=== PATIENT | female | born 1955 | race Asian ===

== ENCOUNTER 2016-11-07 05:40 | Inpatient (IN) | payer OTHER ==
[2016-10-31 15:07] LABS: BASOPHILS % (AUTO) 0.5 % (0.0-2.0); EOSINOPHILS % (AUTO) 11.8 % (1.0-6.0); HEMATOCRIT 44.4 % (36-46); LYMPHOCYTES # (AUTO) 2.6 K/uL (1.0-4.8); LYMPHOCYTES % (AUTO) 28.1 % (22.0-44.0); MEAN CORPUSCULAR HEMOGLOBIN 29.3 pg (26.0-34.0); MEAN CORPUSCULAR HGB CONC 31.6 G/dL (31.0-37.0); MEAN CORPUSCULAR VOLUME 93 fL (80-100); MONOCYTES # (AUTO) 0.5 K/uL (0.1-1.0); MONOCYTES % (AUTO) 5.7 % (2.0-9.0); NEUTROPHILS % (AUTO) 53.9 % (40.0-70.0); PLATELET COUNT (AUTO) 249 K/uL (150-450); RED BLOOD CELL COUNT(AUTO) 4.79 MIL/uL (4.00-5.20); WHITE BLOOD COUNT (AUTO) 9.3 K/uL (4.5-11.0)
[2016-10-31 15:19] LABS: CALCIUM, TOTAL 9.5 mg/dL (8.8-10.5); CREATININE 0.95 mg/dL (0.60-1.30); POTASSIUM 4.4 mmol/L (3.5-5.1); PROTHROMBIN TIME 10.4 SEC (9.4-11.6)
[2016-10-31 15:33] LABS: BILIRUBIN,TOTAL 0.3 mg/dL (0.1-1.0); TOTAL PROTEIN, SERUM 8.3 g/dL (6.4-8.2)
[~2016-11-07] VITALS: Ht 162.6 cm; Wt 79.5 kg
[~2016-11-07 05:40] MED LIST: AMLO-512 PO; ASPI81 PO; ATEN100T PO; GLIP5 PO; LORA10TA7 PO; LOSA50TA37 PO; LOVA20 PO; METF500T4 PO; OMEP20 PO
[2016-11-07] MEDS ORDERED: RINGERS SOLUTION,LACTATED 1,000 ML IV ONE ×3 (05:44→06:40)
[2016-11-07] MEDS ORDERED: SODIUM CHLORIDE 0.9% 10 ML ONE (06:39)
[2016-11-07] MEDS ORDERED: BUPIVACAINE HCL/PF 0.5% 30 ML VIAL ONE (06:39)
[2016-11-07] MEDS ORDERED: BACITRACIN 50,000 UNITS/VIAL ONE (06:40)
[2016-11-07] MEDS ORDERED: SODIUM CL IRRIG SOLN BAG 3,000 ML IRRIG ONE (06:40)
[2016-11-07] MEDS ORDERED: CELECOXIB 200 MG CAPSULE PO ONE (06:45)
[2016-11-07] MEDS ORDERED: FentaNYL CITRATE-PF 100 MCG/2 ML VIAL IVP PRN (06:45)
[2016-11-07] MEDS ORDERED: HYDROmorphone 2 MG/ML SYRINGE IVP PRN ×2 (06:45)
[2016-11-07] MEDS ORDERED: ZOLPIDEM TARTRATE 5 MG TABLET PO PRN (06:45)
[2016-11-07] MEDS ORDERED: MEPERIDINE-PF 25 MG/ML SYRINGE IVP PRN (06:45)
[2016-11-07] MEDS ORDERED: PROMETHAZINE HCL 25 MG/ML VIAL IM PRN (06:45)
[2016-11-07] MEDS ORDERED: BUPIVACAINE LIPOSOME/PF 1.3%-13.3MG/ML SUSPENSION 20 ML VIAL INJ ONE (06:45)
[2016-11-07] MEDS ORDERED: ONDANSETRON HCL 4 MG/2 ML VIAL IVP PRN ×2 (06:45→09:15)
[2016-11-07] MEDS ORDERED: TRANEXAMIC ACID 1,000 MG in DEXTROSE 5%-WATER 50 ML IV ONE (06:45)
[2016-11-07] MEDS ORDERED: CYCLOBENZAPRINE HCL 10 MG TABLET PO PRN (06:45)
[2016-11-07] MEDS ORDERED: CELECOXIB 200 MG CAPSULE ONE (06:48)
[2016-11-07 06:52] LABS: GLUCOSE,POINT OF CARE 122 MG/DL (70-110)
[2016-11-07] MEDS ORDERED: SODIUM CHLORIDE 0.9% 30 ML ONE (06:54)
[2016-11-07] MEDS ORDERED: SODIUM CHLORIDE 0.9% 50 ML ONE (06:54)
[2016-11-07] MEDS: ACETAMINOPHEN 1000 MG/ISO-OSM 100 ML IV SCH ×3 (07:13→21:21)
[2016-11-07] MEDS ORDERED: SODIUM CHLORIDE 0.9% 1,000 ML IV SCH (09:08)
[2016-11-07] MEDS ORDERED: BISACODYL 10 MG RECTAL RECTAL SUPPOSITORY PR PRN (09:15)
[2016-11-07] MEDS ORDERED: BENZOCAINE/MENTHOL LOZENGE [8 LOZENGES/PACKET] PO PRN (09:15)
[2016-11-07] MEDS ORDERED: DiphenhydrAMINE HCL 50 MG/ML VIAL IVP PRN (09:15)
[2016-11-07] MEDS ORDERED: 0.9% SODIUM CHLORIDE 10 ML SYRINGE IVP PRN (09:15)
[2016-11-07] MEDS ORDERED: MAG HYDROX/AL HYDROX/SIMETH 30 ML SUSP UDCUP PO PRN (09:15)
[2016-11-07 10:50] VITALS: BP 134/80
[2016-11-07] MEDS ORDERED: FentaNYL CITRATE-PF 100 MCG/2 ML VIAL IVP ONE (12:00)
[2016-11-07] MEDS ORDERED: MIDAZOLAM HCL 2 MG/2 ML VIAL IVP ONE (12:00)
[2016-11-07] MEDS ORDERED: 0.9% SODIUM CHLORIDE 10 ML VIAL IVP ONE (12:00)
[2016-11-07] MEDS ORDERED: KETAMINE HCL 50 MG/ML 10 ML VIAL IVP ONE (12:00)
[2016-11-07] MEDS ORDERED: EPHEDrine SULFATE 50 MG/ML VIAL IM ONE (12:00)
[2016-11-07 12:02] LABS: GLUCOSE,POINT OF CARE 151 MG/DL (70-110)
[2016-11-07] MEDS: CeFAZolin 1 GM/DEXTROSE 50 ML IV SCH ×2 (15:30→23:38)
[2016-11-07] MEDS ORDERED: DEXTROSE 50%-WATER 25 GM/50 ML SYRINGE IVP PRN (16:15)
[2016-11-07 16:21] VITALS: BP 128/76
[2016-11-07 17:58] LABS: GLUCOSE,POINT OF CARE 210 MG/DL (70-110)
[2016-11-07] MEDS: MetFORMIN HCL 500 MG TABLET PO SCH (18:52)
[2016-11-07] MEDS: OXYGEN THERAPY IH SCH (20:00)
[2016-11-07] MEDS ORDERED: OXYGEN THERAPY IH SCH (20:00)
[2016-11-07] MEDS: DOCUSATE SODIUM 100 MG CAPSULE PO SCH (20:04)
[2016-11-07] MEDS: LOVASTATIN 20 MG TABLET PO SCH (20:05)
[2016-11-07] MEDS: CELECOXIB 200 MG CAPSULE PO SCH (20:05)
[2016-11-07 20:07] VITALS: BP 136/75
[2016-11-07 21:22] LABS: GLUCOSE,POINT OF CARE 154 MG/DL (70-110)
[2016-11-07] MEDS: INSULIN ASPART 100 UNITS/ML SQ PRN (21:26)
[2016-11-07 23:41] VITALS: BP 125/78
[2016-11-08] MEDS: ACETAMINOPHEN 1000 MG/ISO-OSM 100 ML IV SCH ×2 (03:31→06:45)
[2016-11-08 03:32] VITALS: BP 121/73
[2016-11-08 05:37] LABS: GLUCOSE COMMENT 1 Received Meds; GLUCOSE,POINT OF CARE 189 MG/DL (70-110)
[2016-11-08] MEDS: GlipiZIDE 5 MG TABLET PO SCH (05:52)
[2016-11-08] MEDS: INSULIN ASPART 100 UNITS/ML SQ PRN ×3 (05:55→17:16)
[2016-11-08 06:15] LABS: BASOPHILS % (AUTO) 0.3 % (0.0-2.0); EOSINOPHILS % (AUTO) 11.8 % (1.0-6.0); HEMATOCRIT 35.6 % (36-46); LYMPHOCYTES # (AUTO) 1.8 K/uL (1.0-4.8); LYMPHOCYTES % (AUTO) 19.2 % (22.0-44.0); MEAN CORPUSCULAR HEMOGLOBIN 31.1 pg (26.0-34.0); MEAN CORPUSCULAR HGB CONC 33.7 G/dL (31.0-37.0); MEAN CORPUSCULAR VOLUME 92 fL (80-100); MONOCYTES # (AUTO) 0.7 K/uL (0.1-1.0); MONOCYTES % (AUTO) 7.3 % (2.0-9.0); NEUTROPHILS # (AUTO) 5.6 K/uL (1.8-7.7); NEUTROPHILS % (AUTO) 61.4 % (40.0-70.0); PLATELET COUNT (AUTO) 212 K/uL (150-450); RED BLOOD CELL COUNT(AUTO) 3.86 MIL/uL (4.00-5.20); RED CELL DISTRIBUTION WIDTH 12.8 % (11.5-14.5); WHITE BLOOD COUNT (AUTO) 9.2 K/uL (4.5-11.0)
[2016-11-08 06:28] LABS: ANION GAP 7 mmol/L (8-16); CALCIUM, TOTAL 8.6 mg/dL (8.8-10.5); CARBON DIOXIDE 31 mmol/L (22-29); CHLORIDE 102 mmol/L (98-107); GLOMERULAR FILTR. RATE CALC > 60 mL/min (>60); POTASSIUM 4.3 mmol/L (3.5-5.1); SODIUM SERUM 140 mmol/L (136-145); UREA NITROGEN, BLOOD 17 mg/dL (7-18)
[2016-11-08 08:00] VITALS: BP 117/88
[2016-11-08] MEDS: OXYGEN THERAPY IH SCH ×2 (08:00→20:00)
[2016-11-08] MEDS ORDERED: RIVAROXABAN 10 MG TABLET PO SCH ×2 (09:00)
[2016-11-08] MEDS: CELECOXIB 200 MG CAPSULE PO SCH ×2 (09:04→20:50)
[2016-11-08] MEDS: ATENOLOL 100 MG TABLET PO SCH (09:04)
[2016-11-08] MEDS: DOCUSATE SODIUM 100 MG CAPSULE PO SCH ×2 (09:05→20:50)
[2016-11-08] MEDS: AmLODIPine BESYLATE 10 MG TABLET PO SCH (09:05)
[2016-11-08] MEDS: LOSARTAN POTASSIUM 50 MG TABLET PO SCH (09:06)
[2016-11-08] MEDS: MetFORMIN HCL 500 MG TABLET PO SCH ×2 (10:08→17:15)
[2016-11-08] MEDS: OMEPRAZOLE 20 MG CAPSULE PO SCH (10:08)
[2016-11-08 11:29] VITALS: BP 144/84
[2016-11-08 11:52] LABS: GLUCOSE,POINT OF CARE 152 MG/DL (70-110)
[2016-11-08] MEDS ORDERED: OxyCODONE HCL/ACETAMINOPHEN 10-325 MG TABLET PO PRN (13:00)
[2016-11-08 16:18] VITALS: BP 133/77
[2016-11-08 17:07] LABS: GLUCOSE,POINT OF CARE 152 MG/DL (70-110)
[2016-11-08 20:00] VITALS: BP 147/86
[2016-11-08 20:47] LABS: GLUCOSE,POINT OF CARE 120 MG/DL (70-110)
[2016-11-08] MEDS: LOVASTATIN 20 MG TABLET PO SCH (20:50)
[2016-11-09] VITALS: BP 133/88
[2016-11-09 04:00] VITALS: BP 135/82
[2016-11-09 06:08] LABS: GLUCOSE,POINT OF CARE 151 MG/DL (70-110)
[2016-11-09] MEDS: GlipiZIDE 5 MG TABLET PO SCH (06:24)
[2016-11-09] MEDS: INSULIN ASPART 100 UNITS/ML SQ PRN (06:26)
[2016-11-09 06:51] LABS: BASOPHILS % (AUTO) 0.6 % (0.0-2.0); HEMATOCRIT 36.2 % (36-46); LYMPHOCYTES # (AUTO) 1.6 K/uL (1.0-4.8); MEAN CORPUSCULAR HEMOGLOBIN 30.8 pg (26.0-34.0); MEAN CORPUSCULAR HGB CONC 33.3 G/dL (31.0-37.0); MEAN CORPUSCULAR VOLUME 92 fL (80-100); MONOCYTES # (AUTO) 0.6 K/uL (0.1-1.0); NEUTROPHILS # (AUTO) 6.7 K/uL (1.8-7.7); NEUTROPHILS % (AUTO) 65.4 % (40.0-70.0); PLATELET COUNT (AUTO) 220 K/uL (150-450); RED BLOOD CELL COUNT(AUTO) 3.91 MIL/uL (4.00-5.20); RED CELL DISTRIBUTION WIDTH 12.7 % (11.5-14.5); WHITE BLOOD COUNT (AUTO) 10.3 K/uL (4.5-11.0)
[2016-11-09 07:58] VITALS: BP 117/79
[2016-11-09] MEDS: OXYGEN THERAPY IH SCH (08:00)
[2016-11-09] MEDS: DOCUSATE SODIUM 100 MG CAPSULE PO SCH (09:18)
[2016-11-09] MEDS: CELECOXIB 200 MG CAPSULE PO SCH (09:18)
[2016-11-09] MEDS: AmLODIPine BESYLATE 10 MG TABLET PO SCH (09:18)
[2016-11-09] MEDS: LOSARTAN POTASSIUM 50 MG TABLET PO SCH (09:19)
[2016-11-09] MEDS: MetFORMIN HCL 500 MG TABLET PO SCH (09:19)
[2016-11-09] MEDS: OMEPRAZOLE 20 MG CAPSULE PO SCH (09:19)
[2016-11-09] MEDS: ATENOLOL 100 MG TABLET PO SCH (09:19)
[2016-11-09 12:00] VITALS: BP 140/83
[2016-11-09 12:12] LABS: GLUCOSE,POINT OF CARE 140 MG/DL (70-110)
== END 2016-11-09 17:46 | DRG 302 ==
LOC: 4E 05:40
PROVIDERS: ADMIT Orthopaedic Surgery; ATTEND Orthopaedic Surgery
PROC: 0SRC0J9 Replacement of Right Knee Joint with Synthetic Substitute, Cemented, Open Approach (ICD-10-PCS; principal; 2016-11-07 07:30)
DX: M17.11 Unilateral primary osteoarthritis, right knee (principal); I10 Essential (primary) hypertension; E11.9 Type 2 diabetes mellitus without complications; E78.5 Hyperlipidemia, unspecified; K21.9 Gastro-esophageal reflux disease without esophagitis; Z79.84 Long term (current) use of oral hypoglycemic drugs; Z79.899 Other long term (current) drug therapy
CPT/HCPCS: 82962; 87081; 88300; 93005; 97110; 97116; 97161; 97165; 97530; 97535; C9290; J0131; J0690; J1170; J2250; J3010; J3490; J7050; J7060; J7120